=== PATIENT | male | born 1955 | race Caucasian/White ===

== ENCOUNTER 2016-09-19 01:53 | Inpatient (IN) | payer OTHER ==
[~2016-09-19] VITALS: Ht 167.6 cm; Wt 66.3 kg
[2016-09-19 02:36] LABS: PLATELET COUNT 215 x10^3mcL (130-400); RED CELL DISTRIBUTION WIDTH 13.4 % (11.5-14.5)
[2016-09-19 02:41] LABS: BASOPHIL % 4.9 % (0-2)
[2016-09-19 02:48] LABS: ALKALINE PHOSPHATASE 83 U/L (46-116); ALT/SGPT 51 U/L (16-63); AST/SGOT 22 U/L (15-37); BILIRUBIN TOTAL 0.26 mg/dL (0.20-1.00); CALCIUM 8.4 mg/dL (8.5-10.1); CHLORIDE SERUM 100 mmol/L (98-107); CREATININE SERUM 0.9 mg/dL (0.7-1.3); GFR1 > 60 mL/min; GLUCOSE SERUM 162 mg/dL (74-106); SODIUM SERUM 134 mmol/L (136-145)
[2016-09-19 02:52] LABS: ALBUMIN 3.3 g/dL (3.4-5.0); TOTAL PROTEIN, SERUM 6.1 g/dL (6.4-8.2)
[2016-09-19 02:53] LABS: POTASSIUM SERUM 2.7 mmol/L (3.5-5.1)
[2016-09-19 03:00] LABS: CK-MB 4.5 ng/mL (0-3.6)
[2016-09-19] MEDS ORDERED: BUPROPION HCL300 MG PO (04:12)
[2016-09-19] MEDS ORDERED: GLUCAGON EMERGEN1 MG IM (04:14)
[2016-09-19] MEDS ORDERED: NAMENDA10 M2 PO (04:15)
[2016-09-19] MEDS ORDERED: CLARITIN10 MG PO (04:15)
[2016-09-19] MEDS ORDERED: TRESIBA FL100 UNIT/1 IM (04:17)
[2016-09-19] MEDS ORDERED: IRON325 MG PO (04:18)
[2016-09-19] MEDS ORDERED: NATURE'S B5000 IU/ML PO (04:19)
[2016-09-19] MEDS ORDERED: MEGL PO (04:20)
[2016-09-19] MEDS ORDERED: AVODART0.5 M1 PO (04:20)
[2016-09-19] MEDS ORDERED: COZAAR100 MG PO (04:20)
[2016-09-19] MEDS ORDERED: ZOCOR10 MG PO (04:21)
[2016-09-19] MEDS ORDERED: ATENOLOL50 MG PO (04:21)
[2016-09-19] MEDS ORDERED: ARICEPT5 MG PO (04:22)
[2016-09-19] MEDS ORDERED: RANITIDINE HCL150 M1 PO (04:23)
[2016-09-19] MEDS ORDERED: NOR5 PO (04:23)
[2016-09-19] MEDS ORDERED: PLA75 PO (04:25)
[2016-09-19] MEDS ORDERED: HALOPERIDOL10 MG PO (04:25)
[2016-09-19] MEDS ORDERED: INSR IM (04:29)
[2016-09-19 05:22] VITALS: BP 117/60
[2016-09-19 06:58] LABS: T3 TOTAL 0.79 ng/mL
[2016-09-19 07:05] VITALS: BP 117/60
[2016-09-19 08:35] VITALS: BP 112/64
[2016-09-19 10:33] LABS: PHOSPHOROUS 3.5 mg/dL (2.5-4.9)
[2016-09-19 10:34] LABS: CHOLESTEROL/HDL RATIO 1.5
[2016-09-19 10:39] LABS: FREE THYROXINE INDEX 3.3 ug/dL (1.4-4.5); T4(THYROXINE) 8.6 ug/dL (4.7-13.3)
[2016-09-19 10:43] LABS: FREE T4 1.56 ng/dL (0.76-1.46)
[2016-09-19 12:46] VITALS: BP 125/68
[2016-09-19 15:57] LABS: CALCIUM 8.6 mg/dL (8.5-10.1); CARBON DIOXIDE 27.4 mmol/L (21-32); CHLORIDE SERUM 101 mmol/L (98-107); GFR1 > 60 mL/min; GLUCOSE SERUM 208 mg/dL (74-106); POTASSIUM SERUM 4.3 mmol/L (3.5-5.1); SODIUM SERUM 138 mmol/L (136-145)
[2016-09-19 17:23] VITALS: BP 121/59
[2016-09-19 18:31] LABS: microscopic required? YES; urine erythrocyte 2+ (NEGATIVE)
[2016-09-19 18:41] LABS: AMPHETAMINE QUAL UR NONE DETECTED (NEG <=1000)
[2016-09-19 21:46] VITALS: BP 125/70
[2016-09-20 06:12] LABS: BASOPHIL % 0.3 % (0-2); PLATELET COUNT 205 x10^3mcL (130-400); RED CELL DISTRIBUTION WIDTH 14.2 % (11.5-14.5)
[2016-09-20 06:18] LABS: CALCIUM 8.3 mg/dL (8.5-10.1); CARBON DIOXIDE 26.8 mmol/L (21-32); CHLORIDE SERUM 101 mmol/L (98-107); CREATININE SERUM 0.9 mg/dL (0.7-1.3); GFR1 > 60 mL/min; GLUCOSE SERUM 134 mg/dL (74-106); MAGNESIUM 1.7 mg/dL (1.8-2.4); PHOSPHOROUS 3.4 mg/dL (2.5-4.9); SODIUM SERUM 135 mmol/L (136-145)
[2016-09-20 06:34] VITALS: BP 131/64
[2016-09-20 07:50] VITALS: BP 127/62
[2016-09-20 09:03] VITALS: BP 140/66
[2016-09-20 13:40] VITALS: BP 128/59
[2016-09-20 18:05] VITALS: BP 137/74
[2016-09-20 21:49] VITALS: BP 130/59
[2016-09-21 05:21] VITALS: BP 131/68
[2016-09-21 07:18] LABS: BASOPHIL % 0.3 % (0-2); PLATELET COUNT 213 x10^3mcL (130-400); RED CELL DISTRIBUTION WIDTH 14.4 % (11.5-14.5)
[2016-09-21 07:26] LABS: CALCIUM 8.4 mg/dL (8.5-10.1); CARBON DIOXIDE 25.6 mmol/L (21-32); CHLORIDE SERUM 101 mmol/L (98-107); CREATININE SERUM 0.8 mg/dL (0.7-1.3); GFR1 > 60 mL/min; GLUCOSE SERUM 110 mg/dL (74-106); MAGNESIUM 1.6 mg/dL (1.8-2.4); PHOSPHOROUS 3.8 mg/dL (2.5-4.9); POTASSIUM SERUM 3.9 mmol/L (3.5-5.1); SODIUM SERUM 134 mmol/L (136-145)
[2016-09-21 07:45] VITALS: BP 124/70
[2016-09-21 09:25] VITALS: BP 132/70
[2016-09-21 13:20] VITALS: BP 102/60
[2016-09-21 17:31] VITALS: BP 125/64
[2016-09-21 20:48] VITALS: BP 123/66
[2016-09-22 05:21] VITALS: BP 119/69
[2016-09-22 06:47] LABS: BASOPHIL % 0.2 % (0-2); PLATELET COUNT 227 x10^3mcL (130-400); RED CELL DISTRIBUTION WIDTH 14.2 % (11.5-14.5)
[2016-09-22 06:54] LABS: CALCIUM 8.6 mg/dL (8.5-10.1); CARBON DIOXIDE 25.3 mmol/L (21-32); CHLORIDE SERUM 100 mmol/L (98-107); GFR1 > 60 mL/min; GLUCOSE SERUM 133 mg/dL (74-106); MAGNESIUM 1.9 mg/dL (1.8-2.4); POTASSIUM SERUM 3.9 mmol/L (3.5-5.1); SODIUM SERUM 135 mmol/L (136-145)
[2016-09-22 10:00] VITALS: BP 138/71
[2016-09-22] MEDS ORDERED: GLU850 PO (10:16)
[2016-09-22] MEDS ORDERED: LEVEMIR100 U/M1 SC (10:17)
[2016-09-22] MEDS ORDERED: INVOKANA100 MG PO (10:17)
[2016-09-22 13:43] VITALS: BP 119/69
[2016-09-22 14:45] VITALS: BP 124/65
== END 2016-09-22 15:14 | DRG 56 ==
LOC: ED 01:53 → DU 04:17 → MU 04:17 → DU 05:20 → MU 09-22 04:49
PROVIDERS: Emergency Medicine; Family Medicine; ADMIT Family Medicine
DX: G30.9 Alzheimer's disease, unspecified (principal); G93.41 Metabolic encephalopathy; N17.0 Acute kidney failure with tubular necrosis; F20.89 Other schizophrenia; E87.1 Hypo-osmolality and hyponatremia; E44.0 Moderate protein-calorie malnutrition; E11.65 Type 2 diabetes mellitus with hyperglycemia; E11.51 Type 2 diabetes mellitus with diabetic peripheral angiopathy without gangrene; I10 Essential (primary) hypertension; N40.0 Benign prostatic hyperplasia without lower urinary tract symptoms; E78.5 Hyperlipidemia, unspecified; R31.9 Hematuria, unspecified; I25.10 Atherosclerotic heart disease of native coronary artery without angina pectoris; Z79.4 Long term (current) use of insulin; F02.80 Dementia in other diseases classified elsewhere, unspecified severity, without behavioral disturbance, psychotic disturbance, mood disturbance, and anxiety
CPT/HCPCS: 80307; 82947; 82962; 83880; 84439; J1815; J2270; J3475; J3480; J3490; J7030; J7042; Q0092

== ENCOUNTER 2018-10-30 05:04 | Emergency (ER) | payer OTHER ==
[~2018-10-30 05:04] MED LIST: ARICEPT5 MG PO; ATENOLOL50 MG PO; AVODART0.5 M1 PO; BUPROPION HCL300 MG PO; CLARITIN10 MG PO; COZAAR100 MG PO; GLU850 PO; GLUCAGON EMERGEN1 MG IM; HALOPERIDOL10 MG PO; INSR IM; INVOKANA100 MG PO; IRON325 MG PO; LEVEMIR100 U/M1 SC; MEGL PO; NAMENDA10 M2 PO; NATURE'S B5000 IU/ML PO; NOR5 PO; PLA75 PO; RANITIDINE HCL150 M1 PO; TRESIBA FL100 UNIT/1 IM; ZOCOR10 MG PO
[2018-10-30 07:06] LABS: BASOPHIL % 0.1 % (0-2); PLATELET COUNT 267 x10^3mcL (130-400); RED CELL DISTRIBUTION WIDTH 13.3 % (11.5-14.5)
[2018-10-30 08:13] LABS: UA SPECIFIC GRAVITY 1.015 (1.005-1.035)
[2018-10-30 08:15] LABS: microscopic required? YES; urine erythrocyte TRACE (NEGATIVE)
[2018-10-30 08:36] LABS: CARBON DIOXIDE 27.8 mmol/L (21-32); CHLORIDE SERUM 93 mmol/L (98-107); CREATININE SERUM 0.8 mg/dL (0.7-1.3); GFR1 > 60 mL/min; GLUCOSE SERUM 162 mg/dL (74-106); POTASSIUM SERUM 3.7 mmol/L (3.5-5.1); SODIUM SERUM 133 mmol/L (136-145)
[2018-10-30 08:48] LABS: ALBUMIN 4.1 g/dL (3.4-5.0); ALKALINE PHOSPHATASE 176 U/L (46-116); ALT/SGPT 21 U/L (16-63); AMYLASE 83 U/L (25-115); AST/SGOT 17 U/L (15-37); BILIRUBIN TOTAL 0.3 mg/dL (0.20-1.00); CHOLESTEROL 140 mg/dL (<200); LIPASE 116 IU/L (73-393); MAGNESIUM 1.9 mg/dL (1.8-2.4); T4(THYROXINE) 10.2 ug/dL (4.7-13.3); TOTAL PROTEIN, SERUM 7.6 g/dL (6.4-8.2)
[2018-10-30 08:51] LABS: AMPHETAMINE QUAL UR NONE DETECTED (See below)
[2018-10-30 09:02] LABS: HDL CHOLESTEROL 94 mg/dL (40-60)
[2018-10-30 10:48] VITALS: BP 155/72
== END 2018-10-30 10:48 ==
LOC: ED 05:04
PROVIDERS: Emergency Medicine
DX: G93.41 Metabolic encephalopathy (principal); E11.9 Type 2 diabetes mellitus without complications; E78.00 Pure hypercholesterolemia, unspecified; I25.10 Atherosclerotic heart disease of native coronary artery without angina pectoris; F20.9 Schizophrenia, unspecified; D29.1 Benign neoplasm of prostate; F03.90 Unspecified dementia, unspecified severity, without behavioral disturbance, psychotic disturbance, mood disturbance, and anxiety; F31.9 Bipolar disorder, unspecified; K21.9 Gastro-esophageal reflux disease without esophagitis
CPT/HCPCS: 82962; G0480